=== PATIENT | female | born 1975 | race Native Hawaiian/Other Pacific Islander ===

== ENCOUNTER → 2016-09-15 | Day surgery (SDC) | payer BC ==
[~2016-09-15] VITALS: Ht 157.5 cm; Wt 89.0 kg
[~2016-09-15] MED LIST: BUPIVACAINE HCL PF 0.5% 30 ML VIAL ONE; DEXT 5%-NACL 0.45% 1000 ML INJ 1,000 ML IV SCH; FAMOTIDINE 20 MG/2 ML VIAL ONE; GABA400C5 PO; IBUP800T23 PO; LACTATED RINGER'S 1000 ML INJ 1,000 ML ONE; LIDOCAINE HCL 2% 50 ML VIAL ONE; MIDAZOLAM HCL 2 MG/2 ML VIAL ONE; PROPOFOL 200 MG/20 ML AMP IV ONE; SODIUM CHLORIDE 0.9% FLUSH 5 ML FLUSH IVF PRN; SODIUM CHLORIDE 0.9% FLUSH 5 ML FLUSH IVF SCH; ceFAZolin 2 GM PREMIX 50 ML ONE
[2016-09-15 06:50] LABS: MEAN CORPUSCULAR HGB CONC 28.6 % (32.0-36.0)
[2016-09-15 06:59] VITALS: BP 111/67; PULSE 62; RESP 18; TEMP 98.2; O2SAT 100
[2016-09-15 07:23] LABS: HEMATOCRIT 30.5 % (35.0-46.0); MEAN CELL VOLUME 57.4 FL (80.0-100.0); MEAN CORPUSCULAR HEMOGLOBIN 16.4 PG (27.0-34.0); PLATELET COUNT 218 TH/MM3 (150-450); RED BLOOD COUNT 5.32 MIL/MM3 (4.00-5.30); RED CELL DISTRIBUTION WIDTH 18.6 % (11.6-17.2); WHITE BLOOD COUNT 6.3 TH/MM3 (4.0-11.0)
--- NOTE | 2016-09-15 07:57 | HP.UPD ---
H&P Update Date: September 15, 2016 Note The Pre-Admit History and Physical Examination regarding the above named patient was reviewed (including, but not limited to, vital signs, medications, allergies, co-morbid conditions), and upon re-examination it is noted that: Indicated with "X" x - the patient's condition has not significantly changed since the last examination. [] - the patient's condition has changed since the last examination. Changes: Hilda Hook MD September 15, 2016 07:57
[2016-09-15 08:45] LABS: KERATOCYTES 2+ (NORMAL); OVALOCYTES 2+ (NORMAL); PLATELET ESTIMATE SMEAR NORMAL (NORMAL); PLATELET MORPHOLOGY NORMAL (NORMAL); SCAN/DIFF FINAL DIFF MANUAL; TARGET CELLS 1+ (NORMAL)
[2016-09-15 08:51] VITALS: TEMP 98.5
--- NOTE | 2016-09-15 09:07 | HHI.PR ---
Immediate Post Op Note Procedure Date: September 15, 2016 Pre Op Diagnosis: (1) Carpal tunnel syndrome Post Op Diagnosis: (1) Carpal tunnel syndrome Surgeon: Hilda Hook [employer]rrigation District Manager(s): None Procedure: Endoscopic release of the right carpal tunnel. Anesthesia: MAC Drains: None Tourniquet time (min at mmHg) 10 minutes using the Hemaclear. Patient to: SDS Patient Condition: Good Date/Time of Procedure: SEE SURGICAL CARE RECORD Hilda Hook MD September 15, 2016 09:07
[2016-09-15 09:45] VITALS: BP 107/70; PULSE 60; RESP 14; O2SAT 100
--- NOTE | 2016-09-16 09:40 | MP ---
cc: MELY CORDOVA M.D. DATE OF OPERATION 09/15/2016 PREOPERATIVE DIAGNOSIS Right carpal tunnel syndrome. POSTOPERATIVE DIAGNOSIS Right carpal tunnel syndrome. PROCEDURE Endoscopic release of the right carpal tunnel. ANESTHESIA Local with MAC. SURGEON Dr. Cordova INDICATIONS A 40-year-old female with right carpal tunnel syndrome for release. FINDINGS At the completion of the procedure the transverse carpal ligament had been completely divided. TOURNIQUET TIME 10 minutes using the HemaClear. PROCEDURE The patient was seen preoperatively where the site and side were identified and marked. The patient was then taken to the operating room, placed in a supine position. Her identity was checked against the arm band and the consent form, site and side confirmed, time-out called prior to beginning the procedure. The right upper extremity was prepped with Hibiclens and draped in the usual sterile fashion. The area to be incised was outlined with a marking pen as a transverse incision in the distal forearm 1.5 cm proximal to the distal wrist crease. The distal edge of transverse carpal ligament was identified and marked. The arm was simultaneously exsanguinated and the tourniquet placed using the HemaClear after creating a median nerve block and local block using bupivacaine 0.5% plain mixed in equal amounts with lidocaine 2% plain. Once the tourniquet was in place, a 15 blade was used to make the transverse incision in the distal forearm, down through the skin, down to the subcutaneous tissue. Under loupe magnification using spread technique, the forearm fascia was identified and entered. It was then elevated. The synovial elevator was then used to identify the transverse carpal ligament as well as to clean the synovium from it. The obturator cannula apparatus was then introduced into the wound and then just distal to the transverse carpal ligament, popped through the palmar fascia into the subcutaneous plane where a separate incision was made and the entire apparatus was delivered. The obturator was removed leaving the cannula in place. The scope was then passed from distal to proximal identifying the transverse carpal ligament. Then, under direct vision using the scope, the transverse carpal ligament was divided. Photos were taken. The obturator was then placed back into the cannula and the entire apparatus was removed. A forearm fasciotomy was then carried out for 2 or 3 cm proximal to the distal wrist incision. The wounds were then closed with Dermabond. Once the glue had dried in several layers, Steri-Strips were applied. Pressure was applied to the wounds and the HemaClear was removed by incising it and removing it. This was done after 10 minutes of tourniquet time. Pressure was applied and after several minutes there was no evidence of any oozing and a dressing was applied using 4x4s and hand wrap. The patient was then taken from the operating room back to [facility] in satisfactory condition having tolerated the procedure well. Postoperative instructions include keeping the arm elevated, keeping it clean and dry and returning in several days for follow up. MD ANGELICA Rodriguez/MARCUS /9:07 AM /9:33 AM
== END | disposition home or self-care (01) ==
LOC: PHSDC 06:21
PROVIDERS: ATTEND Specialist
DX: G56.01 Carpal tunnel syndrome, right upper limb (principal); Z01.818 Encounter for other preprocedural examination
CPT/HCPCS: 01810; 29848; 36415; 85007; 85027; J0690; J2250; J3010; J7120